=== PATIENT | female | born 1985 | race African-American/Black ===

== ENCOUNTER → 2019-12-02 | Outpatient (CLI) | payer OTHER ==
[2019-12-03 14:13] LABS: SARS-CoV-2 MS2 Positive; SARS-CoV-2 N Gene Negative; SARS-CoV-2 S Gene Negative; SARS-CoV-2 by NAA Not Detected (NotDetected); SARS-CoV-2 orf1ab Negative
== END ==
LOC: LABBT 08:00
PROVIDERS: ATTEND Family Medicine
DX: Z20.828 Contact with and (suspected) exposure to other viral communicable diseases (principal)
CPT/HCPCS: 87635; U0003

== ENCOUNTER 2023-09-26 22:31 | Emergency (ER) | payer OTHER ==
[2023-09-27] MEDS ORDERED: Acetaminophen 500 MG TAB ONE (00:19)
== END 2023-09-27 01:06 | disposition home or self-care (01) ==
LOC: ERS 22:31
DX: T22.111A Burn of first degree of right forearm, initial encounter (principal); I10 Essential (primary) hypertension; E11.9 Type 2 diabetes mellitus without complications; X11.0XXA Contact with hot water in bath or tub, initial encounter
CPT/HCPCS: 99283